=== PATIENT | male | born 1990 | race Caucasian/White ===

== ENCOUNTER 2022-10-05 06:49 | Day surgery (SDC) | payer MEDICAID ==
[~2022-10-05] VITALS: Ht 162.6 cm; Wt 115.7 kg
[2022-10-05] MEDS ORDERED: MEPERIDINE 50 MG/ML VIAL ONE (07:11)
[2022-10-05] MEDS ORDERED: SIMETHICONE 40 MG/0.6 ML ML ONE (07:12)
[2022-10-05] MEDS ORDERED: MEPERIDINE HCL/PF 25 MG/ML DISP.SYRIN ONE (07:18)
[2022-10-05] MEDS ORDERED: MEPERIDINE HCL/PF 25 MG/ML DISP.SYRIN IVP ONE ×2 (08:52→08:56)
[2022-10-05] MEDS: MIDAZOLAM HCL 5 MG/5 ML VIAL ONE ×3 (08:52→08:59)
[2022-10-05 12:38] VITALS: BP_SYST 124
== END 2022-10-05 10:13 | disposition home or self-care (01) ==
LOC: SDS 06:49 → SMU 06:56 → SDS 10:13
PROVIDERS: ATTEND Internal Medicine
DX: R10.31 Right lower quadrant pain (principal); K64.8 Other hemorrhoids; E11.9 Type 2 diabetes mellitus without complications; Z20.822 Contact with and (suspected) exposure to COVID-19
CPT/HCPCS: 45378; 87426; 82962; 36415; 99152; G0378; J2250; J2175